=== PATIENT | female | born 1965 | race Caucasian/White ===

== ENCOUNTER 2016-04-23 13:49 | Emergency (ER) | payer OTHER, MEDICAID ==
--- NOTE | 2016-04-23 13:59 | EDPHY ---
H & P Source: Patient Exam Limitations: No limitations - Medical/Surgical History Hx Asthma: No Hx Chronic Respiratory Disease: No Hx Diabetes: No Hx Cardiac Disease: No Hx Renal Disease: No Hx Cirrhosis: No Hx Alcoholism: No Hx HIV/AIDS: No Hx Splenectomy or Spleen Trauma: No Other PMH: anxiety depession - Family History Significant Family History: Hypertension - Social History Smoking Status: Current some day smoker Alcohol Use: Occasionally Drug Use: Marijuana HPI/ROS: CHIEF COMPLAINT: Depression HISTORY OF PRESENT ILLNESS: The patient is a 50-year-old female who is brought by EMS and police to the emergency department on a M1 hold placed by the [facility]. She self presented there today complaining of depression and suicidal ideations. She is not on any antidepressants. She denies any history of mental health conditions. She does not have a therapist or counselor. They placed her on a hold when she was told this she ran. Police caught her walking down the street and brought her here. She was uncooperative with them refused lab work or vital signs. She does answer questions for me and is minimally cooperative. She denies any true suicidal ideation. She states that she occasionally thinks about it but has no real desire to harm herself. She is very angry about being here on a hold. She does smoke and drink. She denies any drug or alcohol ingestion today. REVIEW OF SYSTEMS: Constitutional: denies: chills, fever, recent illness, recent injury EENTM: denies: blurred vision, double vision, nose congestion Respiratory: denies: cough, shortness of breath Cardiac: denies: chest pain, irregular heart rate, lightheadedness, palpitations Gastrointestinal/Abdominal: denies: abdominal pain, diarrhea, nausea, vomiting, blood streaked stools Genitourinary: denies: dysuria, frequency, hematuria, pain Musculoskeletal: denies: joint pain, muscle pain Skin: denies: lesions, rash, jaundice, bruising Neurological: denies: headache, numbness, paresthesia, tingling, dizziness, weakness Hematologic/Lymphatic: denies: blood clots, easy bleeding, easy bruising Immunologic/allergic: denies: HIV/AIDS, transplant EXAM: GENERAL: Thin and in no acute distress. HEAD: Atraumatic, normocephalic. EYES: Pupils equal round and reactive to light, extraocular movements intact, sclera anicteric, conjunctiva are normal. ENT: TMs normal, nares patent, oropharynx clear without exudates. Moist mucous membranes. NECK: Normal range of motion, supple without lymphadenopathy or JVD. LUNGS: Breath sounds clear to auscultation bilaterally and equal. No wheezes rales or rhonchi. HEART: Regular rate and rhythm without murmurs, rubs or gallops. ABDOMEN: Soft, nontender, normoactive bowel sounds. No guarding, no rebound. No masses appreciated. BACK: No CVA tenderness, no spinal tenderness, step-offs or deformities EXTREMITIES: Normal range of motion, no pitting or edema. No clubbing or cyanosis. NEUROLOGICAL: Cranial nerves II through XII grossly intact. Normal speech, normal gait. 5/5 strength, normal movement in all extremities, normal sensation PSYCH: Angry, answers questions appropriately SKIN: Warm, dry, normal turgor, no visible rashes or lesions. (Suman Moura) Constitutional: Initial Vital Signs Temperature (C) 36.7 C 04/23/16 14:18 Heart Rate 94 04/23/16 14:18 Respiratory Rate 18 04/23/16 14:18 Blood Pressure 143/99 H 04/23/16 14:18 O2 Sat (%) 95 04/23/16 14:18 O2 Delivery Mode Room Air Allergies/Adverse Reactions: No Known Allergies Allergy (Verified 07/23/11 14:21) Home Medications: Medication Instructions Recorded Albuterol Hfa Anes Only [Proair 2 puffs IH QID PRN 12/15/15 Hfa Icu (*)] Carisoprodol 350 mg PO TID PRN 12/15/15 DULoxetine [Cymbalta 60 MG (*)] 60 mg PO DAILY 12/15/15 Dextran 70/Hypromellose 1 drop EACHEYE DAILY PRN 12/15/15 [Artificial Tears] Doxycycline Hyclate [Vibramycin 100 mg PO BID 12/15/15 100 MG (*)] Gabapentin [Neurontin 300 MG (*)] 900 mg PO TID 12/15/15 Ibuprofen [Motrin (*)] 800 mg PO BID PRN 12/15/15 Loratadine 10 mg PO DAILY PRN 12/15/15 clonIDINE [Catapres (*)] 0.1 mg PO DAILY 11/08/16 clonazePAM [klonoPIN (*)] 1 mg PO BID 12/15/15 traZODone [traZODone 150MG (*)] 150 mg PO HS PRN 12/15/15 Medical Decision Making ED Course/Re-evaluation: 1500: The patient is signed out to me at change of shift. I went evaluated the patient. She was still agitated. I discussed the plan with the nursing staff. The patient recently received Haldol 10 mg IM. She will be given Zyprexa. Rechecked the patient on numerous occasions. She was stable during her stay. 2034: I discussed the case with Psychiatric Services. They evaluated the patient. Because of her recent meth use they will re-evaluate her tomorrow. 2299: Patient is signed out to Dr. Rene at change of shift. The patient is stable. (Britany Singletary) 8:00 a.m.- the patient remained stable throughout my shift. She is currently awaiting psychiatric evaluation given her methamphetamine positive urine toxicology screen. She will be signed out to Dr. Garcia. (Maureen Rene) 1030am-accepted at [facility], Dr. Lewis. EMTALA form completed. (Romi Garcia) The patient is screaming and yelling and slamming doors. She has amphetamine in her blood in likely need to be here for 12-24 hours before further evaluation takes place. I will sedate her with Haldol. (Suman Moura) Differential Diagnosis: Partial list of the Differential diagnosis considered include but were not limited to; depression, suicidality, personality disorder, bipolar, substance abuse and although unlikely based on the history and physical exam, I also considered infection, assault, head injury. (Suman Moura) - Data Points Laboratory Results: Laboratory Results 04/23/16 14:05 04/23/16 14:05 Medications Given: Discontinued Medications Haloperidol Lactate (Haldol Injection) 10 mg IM EDNOW ONE Stop: 04/23/16 14:31 Last Admin: 04/23/16 14:49 Dose: 10 mg Olanzapine (Zyprexa Im Injection) 10 mg IM EDNOW ONE Stop: 04/23/16 15:24 Last Admin: 04/23/16 15:39 Dose: Not Given Departure - Departure Disposition: Other Psych, Not [place] Clinical Impression: Methamphetamine abuse Depression Qualifiers: Depression Type: major depressive disorder Major depression recurrence: recurrent Active/Remission status: currently active Major depression episode severity: severe Psychotic features: without psychotic features Qualified Code(s ): F33.2 - Major depressive disorder, recurrent severe without psychotic features Condition: Fair Referrals: Patient,NotPresent [Primary Care Provider] - As per Instructions
[2016-04-23 14:17] LABS: % IMMATURE GRANULYOCYTES 0.1 % (0.0-1.1); ABSOLUTE IMMATURE GRANULOCYTES 0.01 10^3/uL (0.00-0.10); ADD DIFF? NO; ADD MORPH? NO; ADD SCAN? NO; ATYPICAL LYMPHOCYTE FLAG 20 (0-99); FRAGMENT RBC FLAG 0 (0-99); HEMOGLOBIN 16.2 g/dL (12.6-16.3); LEFT SHIFT FLG 0 (0-99); LIPEMIA HEMOLYSIS FLAG 90 (0-99); MEAN CELL HEMOGLOBIN 31.4 pg (27.9-34.1); MEAN CELL HEMOGLOBIN CONCENTR. 33.8 g/dL (32.4-36.7); MEAN PLATELET VOLUME 8.8 fL (8.7-11.7); PLATELET CLUMPS FLAG 0 (0-99); PLATELET COUNT 245 10^3/uL (150-400); RED BLOOD CELL COUNT 5.16 10^6/uL (4.18-5.33); RED CELL DISTRIBUTION WIDTH 12.7 % (11.5-15.2)
[2016-04-23] MEDS ORDERED: HALOPERIDOL LACT 5 MG/ML INJ IM ONE (14:30)
[2016-04-23] MEDS ORDERED: HALOPERIDOL LACT 5 MG/ML INJ ONE (14:31)
[2016-04-23 14:38] LABS: ANION GAP 11 mEq/L (8-16); CALCIUM 9.3 mg/dL (8.5-10.4); CARBON DIOXIDE 23 mEq/l (22-31); CHLORIDE 109 mEq/L (97-110); CREATININE 0.7 mg/dL (0.6-1.0); ETHANOL SERUM < 10 mg/dL (0-10); GLOMERULAR FILTRATION RATE > 60; GLUCOSE 87 mg/dL (70-100); POTASSIUM 4.5 mEq/L (3.5-5.2); SODIUM 143 mEq/L (134-144)
[2016-04-23] MEDS ORDERED: OLANZapine 10 MG/2 ML VIAL IM ONE (15:23)
[2016-04-24 10:35] VITALS: BP 119/84; PULSE 79; RESP 18; TEMP 98.4; O2SAT 95
== END 2016-04-24 13:21 ==
LOC: EDUNIT#
DX: F33.2 Major depressive disorder, recurrent severe without psychotic features (principal); F15.10 Other stimulant abuse, uncomplicated; F17.200 Nicotine dependence, unspecified, uncomplicated
CPT/HCPCS: 80305; G0480

== ENCOUNTER 2016-10-31 22:15 | Emergency (ER) | payer OTHER, MEDICAID ==
--- NOTE | 2016-10-31 22:33 | EDPHY ---
H & P Stated Complaint: found unresponsive HPI/ROS: Chief Complaint: Altered mental status HPI: 51-year-old woman with a past medical history of seizure disorder, depression, degenerative disc disease and fibromyalgia was found unresponsive by her family this evening. Patient's daughter states that when she went to work the patient was very upset. Apparently she is being removed from her home and has been having anxiety over finances and finding a place to live. She does have a history of depression and a suicide attempt in the past. On EMS arrival they found pill bottles next to her of Soma and quetiapine. She was not incontinent. Patient was answering single questions and responding to noxious stimuli. She is breathing on her own and maintaining her oxygen saturations. No recent illness that family is aware of. A ROS is unavailable secondary to patient's altered mental status PMH: Seizure disorder, depression, degenerative disc disease, fibromyalgia Medications: Gabapentin, Soma, quetiapine, clonidine, Cymbalta, carbamazepine Social History: Unknown smoking, unknown alcohol, occasional methamphetamine per her daughter Family History: non-contributory Physical Exam: Gen: Somnolent, answering to her name but otherwise not answering questions. Responding appropriately to noxious stimuli HEENT: Nose: no rhinorrhea Eyes: Pupils are pinpoint, responsive equal bilaterally Mouth: Moist mucosa Neck: Supple, no JVD Chest: nontender, lungs clear to auscultation Heart: S1, S2 normal, no murmur Abd: Soft, non-tender, no guarding Back: no CVA tenderness, no midline tenderness Ext: no edema, non-tender Skin: no rash Neuro: CN II-XII intact, Sensation grossly intact, Strength 5/5 in bilateral upper and lower extremities - Personal History Current Tetanus/Diphtheria Vaccine: Unsure Current Tetanus Diphtheria and Acellular Pertussis (TDAP): Unsure - Medical/Surgical History Hx Asthma: No Hx Chronic Respiratory Disease: No Hx Diabetes: No Hx Cardiac Disease: No Hx Renal Disease: No Hx Cirrhosis: No Hx Alcoholism: No Hx HIV/AIDS: No Hx Splenectomy or Spleen Trauma: No Other PMH: anxiety depession - Social History Smoking Status: Current some day smoker Constitutional: Initial Vital Signs Temperature (C) 36.4 C 10/31/16 22:26 Heart Rate 117 H 10/31/16 22:26 Respiratory Rate 16 10/31/16 22:26 Blood Pressure 120/84 H 10/31/16 22:26 O2 Sat (%) 96 10/31/16 22:26 O2 Delivery Mode Nasal Cannula O2 (L/minute) 2 Allergies/Adverse Reactions: No Known Allergies Allergy (Verified 07/23/11 14:21) Home Medications: Medication Instructions Recorded Albuterol Hfa Anes Only [Proair 2 puffs IH QID PRN 12/15/15 Hfa Icu (*)] Carisoprodol 350 mg PO TID PRN 12/15/15 DULoxetine [Cymbalta 60 MG (*)] 60 mg PO DAILY 12/15/15 Dextran 70/Hypromellose 1 drop EACHEYE DAILY PRN 12/15/15 [Artificial Tears] Doxycycline Hyclate [Vibramycin 100 mg PO BID 12/15/15 100 MG (*)] Gabapentin [Neurontin 300 MG (*)] 900 mg PO TID 12/15/15 Ibuprofen [Motrin (*)] 800 mg PO BID PRN 12/15/15 clonIDINE [Catapres (*)] 0.1 mg PO DAILY 12/15/15 clonazePAM [klonoPIN (*)] 1 mg PO BID 12/15/15 traZODone [traZODone 150MG (*)] 150 mg PO HS PRN 12/15/15 Medical Decision Making - Diagnostics Imaging Results: Imaging Impressions Head CT 10/31/16 22:28 Impression: No acute intracranial findings. Findings discussed with Faisal Noble MD 10/31/2016 at 23:16. ED Course/Re-evaluation: 51-year-old female coming in with altered mental status. She was found with a bottle Soma and quetiapine in her bedside these are not anti. Patient is somnolent but is responding. CT scan of the brain is negative. Urine tox screen is positive for amphetamines and for marijuana. No opiates or benzos. CBC and chemistry are normal. Symptoms are likely secondary to [place] ingestion. She has not have any alcohol in her system. She was expressing some depression suicidal references earlier. She has been placed on the tender to allow her to metabolize and reassess her mental status. 0430 patient is now awake and alert. She states that she was angry earlier and so she took 3 of her Seroquel and took some of her Soma because she wanted to sleep. She is currently [place] for safety. Has a history of depression she admits but denies any suicidal thoughts or plans at this time. She also admits that she has not been taking her carbamazepine but it agrees that she needs to start taking it. She does not want an oral load now but will resume her usual dose. She is asking to go home and does not want to stay in the emergency department any longer. She is discharged with follow up with her primary care physician and with [facility] for further care. - Data Points Laboratory Results: Laboratory Results 10/31/16 22:30 10/31/16 22:30 10/31/16 10/31/16 10/31/16 22:30 22:30 22:30 WBC RBC Hgb POC Hgb Hct POC Hct MCV MCH MCHC RDW Plt Count MPV Neut % (Auto) Lymph % (Auto) [place] % (Auto) Eos % (Auto) Baso % (Auto) Nucleat RBC Rel Count Absolute Neuts (auto) Absolute Lymphs (auto) Absolute Monos (auto) Absolute Eos (auto) Absolute Basos (auto) Absolute Nucleated RBC Immature Gran % Immature Gran # POC Sodium Sodium POC Potassium Potassium POC Chloride Chloride Carbon Dioxide Anion Gap POC BUN BUN Creatinine POC Creatinine Estimated GFR Glucose POC Glucose Calcium Total Bilirubin AST ALT Alkaline Phosphatase Total Protein Albumin Beta HCG, Qual Urine Color YELLOW Urine Appearance CLEAR Urine pH 5.0 (5.0-7.5) Ur Specific [place] 1.019 (1.002-1.030) Urine Protein NEGATIVE (NEGATIVE) Urine Ketones NEGATIVE (NEGATIVE) Urine Blood NEGATIVE (NEGATIVE) Urine Nitrate NEGATIVE (NEGATIVE) Urine Bilirubin NEGATIVE (NEGATIVE) Urine Urobilinogen NEGATIVE EU EU (0.2-1.0) Ur Leukocyte Esterase NEGATIVE (NEGATIVE) Urine Glucose NEGATIVE (NEGATIVE) Salicylates Urine Opiates Screen NEGATIVE (NEGATIVE) Acetaminophen Urine Barbiturates NEGATIVE (NEGATIVE) Carbamazepine < 3.0 ug/mL L ug/mL (4.0-12.0) Ur Phencyclidine Scrn NEGATIVE (NEGATIVE) Ur Amphetamine Screen NON-NEGATIVE H (NEGATIVE) U Benzodiazepines Scrn NEGATIVE (NEGATIVE) Urine Cocaine Screen NEGATIVE (NEGATIVE) U Marijuana (THC) Screen NON-NEGATIVE H (NEGATIVE) Ethyl Alcohol 10/31/16 10/31/16 10/31/16 22:30 22:30 22:30 WBC 10.32 10^3/uL H 10^3/uL (3.80-9.50) RBC 4.86 10^6/uL 10^6/uL (4.18-5.33) Hgb 15.5 g/dL g/dL (12.6-16.3) POC Hgb Hct 44.8 % % (38.0-47.0) POC Hct MCV 92.2 fL fL (81.5-99.8) MCH 31.9 pg pg (27.9-34.1) MCHC 34.6 g/dL g/dL (32.4-36.7) RDW 12.9 % % (11.5-15.2) Plt Count 248 10^3/uL 10^3/uL (150-400) MPV 9.2 fL fL (8.7-11.7) Neut % (Auto) 45.7 % % (39.3-74.2) Lymph % (Auto) 44.1 % % (15.0-45.0) [place] % (Auto) 8.2 % % (4.5-13.0) Eos % (Auto) 1.0 % % (0.6-7.6) Baso % (Auto) 0.8 % % (0.3-1.7) Nucleat RBC Rel Count 0.0 % % (0.0-0.2) Absolute Neuts (auto) 4.72 10^3/uL 10^3/uL (1.70-6.50) Absolute Lymphs (auto) 4.55 10^3/uL H 10^3/uL (1.00-3.00) Absolute Monos (auto) 0.85 10^3/uL H 10^3/uL (0.30-0.80) Absolute Eos (auto) 0.10 10^3/uL 10^3/uL (0.03-0.40) Absolute Basos (auto) 0.08 10^3/uL 10^3/uL (0.02-0.10) Absolute Nucleated RBC 0.00 10^3/uL 10^3/uL (0-0.01) Immature Gran % 0.2 % % (0.0-1.1) Immature Gran # 0.02 10^3/uL 10^3/uL (0.00-0.10) POC Sodium Sodium 138 mEq/L mEq/L (134-144) POC Potassium Potassium 3.9 mEq/L mEq/L (3.5-5.2) POC Chloride Chloride 103 mEq/L mEq/L (97-110) Carbon Dioxide 25 mEq/l mEq/l (22-31) Anion Gap 10 mEq/L mEq/L (8-16) POC BUN BUN 14 mg/dL mg/dL (7-23) Creatinine 0.9 mg/dL mg/dL (0.6-1.0) POC Creatinine Estimated GFR > 60 Glucose 137 mg/dL H mg/dL (70-100) POC Glucose Calcium 9.8 mg/dL mg/dL (8.5-10.4) Total Bilirubin 0.5 mg/dL mg/dL (0.1-1.4) AST 18 IU/L IU/L (14-46) ALT 31 IU/L IU/L (9-52) Alkaline Phosphatase 94 IU/L IU/L (38-126) Total Protein 7.0 g/dL g/dL (6.3-8.2) Albumin 4.1 g/dL g/dL (3.5-5.0) Beta HCG, Qual NEGATIVE Urine Color Urine Appearance Urine pH Ur Specific [place] Urine Protein Urine Ketones Urine Blood Urine Nitrate Urine Bilirubin Urine Urobilinogen Ur Leukocyte Esterase Urine Glucose Salicylates < 1.0 mg/dL L mg/dL (2.0-20.0) Urine Opiates Screen Acetaminophen < 10 mcg/mL L mcg/mL (10-30) Urine Barbiturates Carbamazepine Ur Phencyclidine Scrn Ur Amphetamine Screen U Benzodiazepines Scrn Urine Cocaine Screen U Marijuana (THC) Screen Ethyl Alcohol < 10 mg/dL mg/dL (0-10) 10/31/16 22:18 WBC RBC Hgb POC Hgb 16.3 gm/dL gm/dL (12.6-16.3) Hct POC Hct 48 % H % (38-47) MCV MCH MCHC RDW Plt Count MPV Neut % (Auto) Lymph % (Auto) [place] % (Auto) Eos % (Auto) Baso % (Auto) Nucleat RBC Rel Count Absolute Neuts (auto) Absolute Lymphs (auto) Absolute Monos (auto) Absolute Eos (auto) Absolute Basos (auto) Absolute Nucleated RBC Immature Gran % Immature Gran # POC Sodium 141 mEq/L mEq/L (134-144) Sodium POC Potassium 3.8 mEq/L mEq/L (3.3-5.0) Potassium POC Chloride 103 mEq/L mEq/L (97-110) Chloride Carbon Dioxide Anion Gap POC BUN 13 mg/dL mg/dL (7-23) BUN Creatinine POC Creatinine 0.9 mg/dL mg/dL (0.6-1.0) Estimated GFR Glucose POC Glucose 141 mg/dL H mg/dL (70-100) Calcium Total Bilirubin AST ALT Alkaline Phosphatase Total Protein Albumin Beta HCG, Qual Urine Color Urine Appearance Urine pH Ur Specific [place] Urine Protein Urine Ketones Urine Blood Urine Nitrate Urine Bilirubin Urine Urobilinogen Ur Leukocyte Esterase Urine Glucose Salicylates Urine Opiates Screen Acetaminophen Urine Barbiturates Carbamazepine Ur Phencyclidine Scrn Ur Amphetamine Screen U Benzodiazepines Scrn Urine Cocaine Screen U Marijuana (THC) Screen Ethyl Alcohol Medications Given: Discontinued Medications Sodium Chloride (Ns) 1,000 mls @ 0 mls/hr IV ONCE ONE; Wide Open PRN Reason: Protocol Stop: 10/31/16 22:53 Last Admin: 10/31/16 23:25 Dose: 1,000 mls Point of Care Test Results: 10/31/16 22:18 POC Sodium 141 POC Potassium 3.8 POC Chloride 103 POC BUN 13 POC Creatinine 0.9 POC Glucose 141 H Departure - Departure Disposition: Home, Routine, Self-Care Clinical Impression: Overdose Condition: Good Instructions: Adult Overdose (ED) Additional Instructions: Please follow up with primary care physician and with [facility] in 2-3 days for further care. Return to the emergency department for increasing depression, thoughts of suicide, hopelessness, hallucinations, or any other concerns. Please resume taking your seizure medications. Referrals: Patient,NotPresent [Unknown] - As per Instructions [facility] [Outside] - As per Instructions
[2016-10-31 22:38] LABS: % IMMATURE GRANULYOCYTES 0.2 % (0.0-1.1); ABSOLUTE IMMATURE GRANULOCYTES 0.02 10^3/uL (0.00-0.10); ADD DIFF? NO; ADD MORPH? NO; ADD SCAN? NO; ATYPICAL LYMPHOCYTE FLAG 0 (0-99); FRAGMENT RBC FLAG 0 (0-99); HEMATOCRIT 44.8 % (38.0-47.0); HEMOGLOBIN 15.5 g/dL (12.6-16.3); LEFT SHIFT FLG 0 (0-99); LIPEMIA HEMOLYSIS FLAG 90 (0-99); MEAN CELL HEMOGLOBIN 31.9 pg (27.9-34.1); MEAN CELL HEMOGLOBIN CONCENTR. 34.6 g/dL (32.4-36.7); MEAN CELL VOLUME 92.2 fL (81.5-99.8); MEAN PLATELET VOLUME 9.2 fL (8.7-11.7); PLATELET CLUMPS FLAG 10 (0-99); PLATELET COUNT 248 10^3/uL (150-400); RED BLOOD CELL COUNT 4.86 10^6/uL (4.18-5.33); RED CELL DISTRIBUTION WIDTH 12.9 % (11.5-15.2)
[2016-10-31] MEDS ORDERED: NS 1,000 ML IV ONE (22:52)
[2016-10-31 22:55] LABS: ALANINE AMINOTRANSFERASE 31 IU/L (9-52); ALBUMIN 4.1 g/dL (3.5-5.0); ALKALINE PHOSPHATASE 94 IU/L (38-126); ANION GAP 10 mEq/L (8-16); ASPARTATE AMINOTRANSFERASE 18 IU/L (14-46); BILIRUBIN,TOTAL 0.5 mg/dL (0.1-1.4); CALCIUM 9.8 mg/dL (8.5-10.4); CARBON DIOXIDE 25 mEq/l (22-31); CHLORIDE 103 mEq/L (97-110); CREATININE 0.9 mg/dL (0.6-1.0); ETHANOL SERUM < 10 mg/dL (0-10); GLOMERULAR FILTRATION RATE > 60; GLUCOSE 137 mg/dL (70-100); POTASSIUM 3.9 mEq/L (3.5-5.2); SALICYLATE < 1.0 mg/dL (2.0-20.0); SODIUM 138 mEq/L (134-144)
[2016-10-31 23:44] LABS: COLOR YELLOW; LEUKOCYTE ESTERASE,URINE NEGATIVE (NEGATIVE); NITRITE,URINE NEGATIVE (NEGATIVE)
[2016-11-01 04:45] VITALS: BP 119/73; PULSE 72; RESP 18; TEMP 98.2; O2SAT 92
== END 2016-11-01 04:45 | disposition home or self-care (01) ==
LOC: EDUNIT#
DX: T39.014A Poisoning by aspirin, undetermined, initial encounter (principal); T43.504A Poisoning by unspecified antipsychotics and neuroleptics, undetermined, initial encounter; F17.200 Nicotine dependence, unspecified, uncomplicated; E86.9 Volume depletion, unspecified
CPT/HCPCS: 80305; 82947-QW; G0480

== ENCOUNTER 2017-05-06 14:07 | Emergency (ER) | payer OTHER, MEDICAID ==
--- NOTE | 2017-05-06 15:09 | EDPHY ---
H & P Time Seen by Provider: 05/06/17 14:12 HPI/ROS: CHIEF COMPLAINT: Left foot injury HISTORY OF PRESENT ILLNESS: 51-year-old female presents to the emergency department with injury to the left foot. The patient states last night she tripped and fell and injured her left foot. She has a history of a previous left foot fracture which she never sought medical treatment for. She is having difficulty walking. ROS: Denies numbness or tingling in her toes, pain in the other toes, pain in her left ankle. Past Medical/Surgical History: Anxiety, depression, DJD, cervical fusion, orthopedic injury Social History: Smoking Status: Current some day smoker Physical Exam: On examination, the patient has some swelling and some mild ecchymosis especially to the 5th toe. She has reproducible pain with palpation along the 5th metatarsal and 5th toe. Slight pain with palpation along the 4th toe was well. No break in the skin. No abrasions. Normal sensation to light touch. Strong dorsalis pedis pulse on the dorsal aspect of the left foot. Gait is not tested due to pain. Constitutional: Initial Vital Signs Temperature (C) 36.6 C 05/06/17 14:12 Heart Rate 113 H 05/06/17 14:12 Respiratory Rate 18 05/06/17 14:12 Blood Pressure 174/115 H 05/06/17 14:12 O2 Sat (%) 97 05/06/17 14:12 O2 Delivery Mode Room Air Allergies/Adverse Reactions: latex Allergy (Verified 05/06/17 14:11) Home Medications: Medication Instructions Recorded Albuterol Hfa Anes Only [Proair 2 puffs IH QID PRN 12/15/15 Hfa Icu (*)] DULoxetine [Cymbalta 60 MG (*)] 60 mg PO DAILY 12/15/15 Doxycycline Hyclate [Vibramycin 100 mg PO BID 12/15/15 100 MG (*)] Gabapentin [Neurontin 300 MG (*)] 900 mg PO TID 12/15/15 Ibuprofen [Motrin (*)] 800 mg PO BID PRN 12/15/15 MDM/Departure - MDM Imaging Results: Imaging Impressions Foot X-Ray 05/06/17 14:24 Impression: Nondisplaced vertical fracture of the proximal phalanx of the 5th toe with intraarticular extension. Imaging: I viewed and interpreted images myself Procedures: Patient was placed in a postop shoe and examined post application in good placement with normal [employer]. ED Course/Re-evaluation: 51-year-old female presents to the emergency department left foot injury. X- rays reveal acute fracture of proximal phalanx. She also has an old fracture noted to the 5th metatarsal. She was placed in a postop shoe and given orthopedic referral. - Depart Disposition: Home, Routine, Self-Care Clinical Impression: Fracture of fifth toe, left, closed Qualifiers: Encounter type: initial encounter Qualified Code(s): S92.502A - Displaced unspecified fracture of left lesser toe(s), initial encounter for closed fracture Condition: Good Instructions: Toe Fracture (ED) Additional Instructions: Postop shoe for comfort and support to help minimize flexion. Ibuprofen 400 mg every 8 hr as needed for pain. Ice to help relieve swelling. Follow up with orthopedic surgeon this week to recheck. Referrals: Willard Murdock MD [Medical Doctor] - 2-3 days without fail (Orthopedic surgeon on-call)
[2017-05-06 15:28] VITALS: BP 117/90
== END 2017-05-06 15:26 | disposition home or self-care (01) ==
DX: S92.515A Nondisplaced fracture of proximal phalanx of left lesser toe(s), initial encounter for closed fracture (principal); F17.200 Nicotine dependence, unspecified, uncomplicated; Z91.040 Latex allergy status; W01.0XXA Fall on same level from slipping, tripping and stumbling without subsequent striking against object, initial encounter; Y99.8 Other external cause status
CPT/HCPCS: 73630; 99283; L4386